=== PATIENT | female | born 1940 | race American Indian/Alaskan Native ===

== ENCOUNTER 2019-02-10 13:33 | Emergency (ER) | payer SELFPAY ==
[~2019-02-10] VITALS: Ht 165.1 cm; Wt 104.3 kg
[~2019-02-10 13:33] MED LIST: ALBU90OI INH; AMOCLA875 PO; HYDR1TAB94 PO; LOSA25 PO; METO25ER PO
[2019-02-10] MEDS ORDERED: LOSA50 PO (15:01)
[2019-02-10] MEDS ORDERED: METO50 PO (15:02)
[2019-02-10] MEDS ORDERED: CEPH500 PO (15:47)
== END 2019-02-10 15:54 | disposition home or self-care (01) ==
LOC: ER 13:33
DX: L03.213 Periorbital cellulitis (principal); I10 Essential (primary) hypertension; I48.91 Unspecified atrial fibrillation; E03.9 Hypothyroidism, unspecified; Z88.5 Allergy status to narcotic agent; Z91.040 Latex allergy status; Z88.2 Allergy status to sulfonamides; Z88.8 Allergy status to other drugs, medicaments and biological substances; Z79.899 Other long term (current) drug therapy; Z87.891 Personal history of nicotine dependence
CPT/HCPCS: 99281

== ENCOUNTER → 2020-12-04 | Outpatient (CLI) | payer OTHER ==
[~2020-12-04] MED LIST changes: +CEPH500 PO; +LOSA50 PO; +METO50 PO
== END | disposition home or self-care (01) ==
LOC: LAB SHORT 13:58
DX: L97.929 Non-pressure chronic ulcer of unspecified part of left lower leg with unspecified severity (principal)
CPT/HCPCS: 87070; 87205

== ENCOUNTER → 2023-11-17 | Outpatient (CLI) | payer SELFPAY ==
[~2023-11-17] MED LIST changes: +CEFDINIR250 MG/51 PO; +HYDROCODONE-AC118 M5 PO
== END ==
LOC: LAB SHORT 18:53 → LAB 18:53
DX: R30.0 Dysuria (principal)
CPT/HCPCS: 87086

== ENCOUNTER 2023-12-07 03:08 | Day surgery (SDC) | payer SELFPAY | END 2023-12-07 10:05 | disposition home or self-care (01) | LOC: ATC 03:08 | DX: R30.0 Dysuria (principal); Z88.2 Allergy status to sulfonamides; Z91.040 Latex allergy status; Z91.048 Other nonmedicinal substance allergy status | CPT/HCPCS: 51798 ==